=== PATIENT | female | born 1950 | race Caucasian/White ===

== ENCOUNTER → 2016-08-17 | Outpatient (CLI) | payer MEDICARE ==
[~2016-08-17] MED LIST: ANAS1TAB PO; ASPI-515 PO; ASPI325T4 PO; ATOR20TA9 PO; CARI350T PO; CELE200C PO; CHOL100014 PO; DIAZ10TA PO; GABA300C PO; LEVO75TA5 PO; LISI-167 PO; MORP60TA34 PO; OXYC-229 PO; OXYC10TA6 PO; OXYC1TAB8 PO; OXYC20TA42 PO; UBID100C11 PO; VENL37.511 PO; VENL75TA2 PO; VITA1TAB3 PO
[2016-08-17 12:02] LABS: HEMOGLOBIN 14.7 g/dL (11.7-16.4)
[2016-08-17 12:12] LABS: BLOOD UREA NITROGEN 8 mg/dL (7-18)
[2016-08-17 12:17] LABS: ASPARTATE AMINO TRANSFERASE 11 U/L (15-37)
== END | disposition home or self-care (01) ==
LOC: STAR 10:20
PROVIDERS: ATTEND Orthopaedic Surgery
DX: Z01.818 Encounter for other preprocedural examination (principal); M17.12 Unilateral primary osteoarthritis, left knee
CPT/HCPCS: 36415; 80053; 81003; 85025; 87081; 93005

== ENCOUNTER 2016-08-31 07:01 | Inpatient (IN) | payer MEDICARE ==
[~2016-08-31] VITALS: Ht 177.8 cm; Wt 121.6 kg
[2016-08-31] MEDS ORDERED: LACTATED RINGERS 1,000 ML IV SCH (07:39)
[2016-08-31] MEDS ORDERED: VANCOMYCIN PER PHARMACY MC STA (07:45)
[2016-08-31 07:48] VITALS: BP 151/105
[2016-08-31] MEDS ORDERED: LIDOCAINE 1%, 2ML SQ PRN (08:00)
[2016-08-31] MEDS ORDERED: VANCOMYCIN 2,000 MG in SODIUM CHLORIDE 0.9% 500 ML IV ONE (08:30)
[2016-08-31] MEDS ORDERED: morphine SULFATE/PF 1 MG/ML, 10ML ONE (09:00)
[2016-08-31] MEDS ORDERED: ROPIvacaine/PF 0.2%, 20 ML ONE (09:00)
[2016-08-31] MEDS ORDERED: KETOROLAC 60 MG/2 ML ONE (09:00)
[2016-08-31] MEDS ORDERED: EPINEPHRINE 1 MG/ML, 1ML ONE (09:00)
[2016-08-31] MEDS ORDERED: SODIUM CHLORIDE 0.9% 50 ML ONE (09:01)
[2016-08-31] MEDS ORDERED: MIDAZOLAM 1 MG/ML, 2ML ONE ×2 (09:21→11:36)
[2016-08-31] MEDS ORDERED: FENTANYL PF 250 MCG/5ML ONE (09:21)
[2016-08-31] MEDS ORDERED: BUPIVACAINE/PF 0.5% ONE (09:22)
[2016-08-31] MEDS ORDERED: METOCLOPRAMIDE 5 MG/ML, 2ML ONE (09:32)
[2016-08-31] MEDS ORDERED: NEOSTIGMINE 1 MG/ML, 10ML ONE (09:32)
[2016-08-31] MEDS ORDERED: CEFAZOLIN 1,000 MG ONE (09:32)
[2016-08-31] MEDS ORDERED: DEXAMETHASONE 4 MG/ML, 1ML ONE (09:32)
[2016-08-31] MEDS ORDERED: ONDANSETRON 2MG/ML, 2ML ONE (09:32)
[2016-08-31] MEDS ORDERED: PROPOFOL 10 MG/ML, 20ML ONE (09:32)
[2016-08-31] MEDS ORDERED: ROCURONIUM 10 MG/ML ONE (09:32)
[2016-08-31] MEDS ORDERED: GLYCOPYRROLATE 0.2MG/1ML ONE (09:32)
[2016-08-31] MEDS ORDERED: TRANEXAMIC ACID 100 MG/ML, 10ML ONE (09:37)
[2016-08-31] MEDS ORDERED: HYDROmorphone 1 MG/ML, 1ML ONE ×2 (09:42→11:09)
[2016-08-31] MEDS ORDERED: LABETALOL 5MG/ML, 20ML IV PRN (10:30)
[2016-08-31] MEDS ORDERED: hydrALAzine 20 MG/ML, 1ML IV PRN (10:30)
[2016-08-31] MEDS ORDERED: ACETAMINOPHEN 325 MG TABLET PO PRN ×2 (10:30→14:30)
[2016-08-31] MEDS ORDERED: ONDANSETRON 2MG/ML, 2ML IVPush PRN ×2 (10:30→14:30)
[2016-08-31] MEDS ORDERED: EPHEDRINE 50 MG/ML, 1ML IVPush PRN (10:30)
[2016-08-31] MEDS ORDERED: METOPROLOL 1 MG/ML, 5ML IV PRN (10:30)
[2016-08-31] MEDS ORDERED: OXYcodone 5 MG/5 ML ORAL.SOL UDC PO PRN (10:30)
[2016-08-31] MEDS ORDERED: ALBUTEROL SULFATE 2.5 MG/3 ML NPPB PRN (10:30)
[2016-08-31] MEDS ORDERED: NEOSPORIN OINT, 15GM ONE (10:34)
[2016-08-31] MEDS ORDERED: HYDROmorphone 2 MG/ML, 1ML ONE ×2 (11:13→12:00)
[2016-08-31] MEDS: HYDROmorphone 1 MG/ML, 1ML IV PRN ×8 (11:15→12:25)
[2016-08-31] MEDS ORDERED: OXYcodone 5 MG/5 ML ORAL.SOL UDC ONE (11:21)
[2016-08-31] MEDS ORDERED: FENTANYL PF 100 MCG/2ML ONE ×2 (11:36→12:33)
[2016-08-31] MEDS: FENTANYL PF 100 MCG/2ML IV PRN ×4 (11:41→13:08)
[2016-08-31] MEDS: MIDAZOLAM 1 MG/ML, 2ML IV PRN ×2 (11:42→11:57)
[2016-08-31] MEDS ORDERED: DIAZEPAM 5 MG/ML, 2ML ONE (12:15)
[2016-08-31] MEDS ORDERED: DIAZEPAM 5 MG/ML, 2ML IV ONE (12:30)
[2016-08-31] MEDS ORDERED: HYDROmorphone PCA 30 MG/30 ML ONE (13:20)
[2016-08-31] MEDS: HYDROmorphone PCA 30 MG/30 ML IV PRN (13:29)
[2016-08-31] MEDS ORDERED: BISACODYL 10 MG SUPP PR PRN (14:30)
[2016-08-31] MEDS ORDERED: VANCOMYCIN PMX 1GM/200ML 200 ML IVPB ONE ×2 (14:30→21:00)
[2016-08-31] MEDS ORDERED: ZOLPIDEM 5MG TABLET PO PRN (14:30)
[2016-08-31] MEDS ORDERED: HYDROcodone/APAP 5/325 TABLET PO PRN (14:30)
[2016-08-31] MEDS ORDERED: DIPHENHYDRAMINE 25 MG CAPSULE PO PRN (14:30)
[2016-08-31] MEDS ORDERED: ALUMINUM/MAG/SIMETHICONE 30 ML UDC PO PRN (14:30)
[2016-08-31] MEDS ORDERED: SENNA/DOCUSATE TABLET PO PRN (14:30)
[2016-08-31] MEDS ORDERED: MAGNESIUM HYDROXIDE 8%, 30ML UDC PO PRN (14:30)
[2016-08-31] MEDS ORDERED: morphine SULFATE 10 MG/ML, 1ML IV PRN (14:30)
[2016-08-31] MEDS: POTASSIUM CHLORIDE 10 MEQ in D5%-0.45% NACL 1,000 ML IV SCH (15:35)
[2016-08-31] MEDS: GABAPENTIN 300 MG CAPSULE PO SCH ×2 (15:36→20:38)
[2016-08-31] MEDS: LISINOPRIL 10 MG TABLET PO SCH (15:37)
[2016-08-31] MEDS: ANASTROZOLE 1 MG TABLET PO SCH (16:49)
[2016-08-31] MEDS: CEFAZOLIN PMX 1GM/50ML 50 ML IVPB SCH (18:41)
[2016-08-31 18:58] VITALS: BP 129/77
[2016-08-31] MEDS: DIAZEPAM 5 MG TABLET PO PRN (20:38)
[2016-08-31] MEDS: CARISOPRODOL 350 MG TABLET PO SCH (20:38)
[2016-08-31] MEDS: DOCUSATE 100 MG CAPSULE PO SCH (20:38)
[2016-08-31] MEDS ORDERED: NICOTINE 14MG/24 HR PATCH.TD24 TD ONE (21:00)
[2016-08-31] MEDS: OXYcodone IR 5MG TABLET PO PRN (23:16)
[2016-08-31 23:39] VITALS: BP 105/55
[2016-09-01] MEDS: CEFAZOLIN PMX 1GM/50ML 50 ML IVPB SCH (02:16)
[2016-09-01] MEDS: OXYcodone IR 5MG TABLET PO PRN ×5 (02:53→18:23)
[2016-09-01 04:42] VITALS: BP 125/82
[2016-09-01] MEDS: ENOXAPARIN 30 MG/0.3 ML SQ SCH ×2 (05:43→18:23)
[2016-09-01] MEDS: LEVOTHYROXINE 75 MCG TABLET PO SCH (05:43)
[2016-09-01 06:52] VITALS: BP 123/78
[2016-09-01] MEDS: HYDROmorphone PCA 30 MG/30 ML IV PRN (08:57)
[2016-09-01] MEDS: GABAPENTIN 300 MG CAPSULE PO SCH ×3 (09:13→23:00)
[2016-09-01] MEDS: MULTIVITAMINS/MINERALS TABLET PO SCH (09:13)
[2016-09-01] MEDS: LISINOPRIL 10 MG TABLET PO SCH (09:13)
[2016-09-01] MEDS: DOCUSATE 100 MG CAPSULE PO SCH (09:13)
[2016-09-01] MEDS: ANASTROZOLE 1 MG TABLET PO SCH (09:15)
[2016-09-01] MEDS: POTASSIUM CHLORIDE 10 MEQ in D5%-0.45% NACL 1,000 ML IV SCH (10:36)
[2016-09-01] MEDS: DIAZEPAM 5 MG TABLET PO PRN (12:30)
[2016-09-01] MEDS ORDERED: KETOROLAC 30 MG/1 ML IV SCH ×2 (14:30)
[2016-09-01 14:36] VITALS: BP 128/82
[2016-09-01 18:56] VITALS: BP 140/81
[2016-09-01] MEDS ORDERED: ALBUTEROL SULFATE 2.5 MG/3 ML ONE (20:23)
[2016-09-01] MEDS ORDERED: ALBUTEROL SULFATE 2.5 MG/3 ML NPPB PRN (20:30)
[2016-09-01] MEDS ORDERED: CALCIUM CARBONATE 500 MG TAB.CHEW PO PRN (22:30)
[2016-09-02] MEDS: CARISOPRODOL 350 MG TABLET PO SCH (00:12)
[2016-09-02] MEDS: DOCUSATE 100 MG CAPSULE PO SCH ×2 (00:12→09:09)
[2016-09-02] MEDS: OXYcodone IR 5MG TABLET PO PRN ×5 (00:13→16:59)
[2016-09-02 03:44] VITALS: BP 131/80
[2016-09-02] MEDS: POTASSIUM CHLORIDE 10 MEQ in D5%-0.45% NACL 1,000 ML IV SCH (06:42)
[2016-09-02] MEDS: LEVOTHYROXINE 75 MCG TABLET PO SCH (06:57)
[2016-09-02] MEDS: ENOXAPARIN 30 MG/0.3 ML SQ SCH (07:24)
[2016-09-02 08:01] VITALS: BP 124/68
[2016-09-02] MEDS: MULTIVITAMINS/MINERALS TABLET PO SCH (09:09)
[2016-09-02] MEDS: LISINOPRIL 10 MG TABLET PO SCH (09:10)
[2016-09-02] MEDS: GABAPENTIN 300 MG CAPSULE PO SCH ×2 (09:10→17:04)
[2016-09-02] MEDS: ANASTROZOLE 1 MG TABLET PO SCH (09:11)
[2016-09-02] MEDS ORDERED: KETOROLAC 10MG TABLET PO ONE (13:00)
[2016-09-02] MEDS ORDERED: OXYcodone/APAP 10/325MG TABLET PO ONE ×2 (13:00)
[2016-09-02 14:00] VITALS: BP 135/74
== END 2016-09-02 17:21 | disposition home or self-care (01) | DRG 470 ==
LOC: ORIP 07:01 → 4NOR 13:44
PROVIDERS: ADMIT Orthopaedic Surgery; ATTEND Orthopaedic Surgery
PROC: 0SRD0J9 Replacement of Left Knee Joint with Synthetic Substitute, Cemented, Open Approach (ICD-10-PCS; principal; 2016-08-31 10:00)
DX: M17.12 Unilateral primary osteoarthritis, left knee (principal); I10 Essential (primary) hypertension; M21.70 Unequal limb length (acquired), unspecified site; M79.7 Fibromyalgia; Z96.652 Presence of left artificial knee joint; Z90.710 Acquired absence of both cervix and uterus; Z90.89 Acquired absence of other organs; Z91.041 Radiographic dye allergy status
CPT/HCPCS: 36415; 82565; 94640; C1713; J0171; J0690; J1100; J1170; J1650; J1885; J2250; J2274; J2405; J2704; J2710; J2795; J3010; J3360; J3370; J3480; J3490; J7613; C1776; J2765; J7040; J7120; Q0163

== ENCOUNTER → 2017-02-10 | Outpatient (CLI) | payer MEDICARE ==
[~2017-02-10] MED LIST changes: +ASPI325T17 PO; -ASPI325T4 PO; -OXYC-229 PO; +OXYC-307 PO; -UBID100C11 PO; +UBID100C41 PO
== END | disposition home or self-care (01) ==
LOC: CFH 13:19
PROVIDERS: ATTEND Surgery
DX: R92.0 Mammographic microcalcification found on diagnostic imaging of breast (principal); Z85.3 Personal history of malignant neoplasm of breast; Z90.12 Acquired absence of left breast and nipple; Z92.3 Personal history of irradiation
CPT/HCPCS: G0204

== ENCOUNTER → 2017-07-28 | Outpatient (CLI) | payer MEDICARE, OTHER ==
[~2017-07-28] MED LIST changes: +LEVO100T5 PO; +PRAM1TAB PO
[2017-07-28 12:05] LABS: ALBUMIN 3.9 g/dL (3.4-5.0); ANION GAP 7 mmol/L (5-15); CALCIUM 9.3 mg/dL (8.5-10.1); CHLORIDE 101 mmol/L (98-107)
[2017-07-28 12:09] LABS: ALANINE AMINOTRANSFERASE 20 U/L (12-78); ALKALINE PHOSPHATASE 136 U/L (45-117); BILIRUBIN,TOTAL 0.5 mg/dL (0.2-1.0); CREATININE 0.81 mg/dL (0.55-1.02); TOTAL PROTEIN 7.2 g/dL (6.4-8.2)
== END | disposition home or self-care (01) ==
LOC: STAR 10:39
PROVIDERS: ATTEND Orthopaedic Surgery
DX: Z01.818 Encounter for other preprocedural examination (principal); M17.12 Unilateral primary osteoarthritis, left knee; Z96.652 Presence of left artificial knee joint
CPT/HCPCS: 36415; 80053; 93005

== ENCOUNTER 2017-08-09 11:43 | Day surgery (SDC) | payer MEDICARE, OTHER ==
[~2017-08-09] VITALS: Ht 177.8 cm; Wt 108.6 kg
[2017-08-09] MEDS ORDERED: VANCOMYCIN PMX 1GM/200ML 200 ML IV ONE (11:54)
[2017-08-09] MEDS ORDERED: LIDOCAINE-MPF 1%, 2ML ONE (12:24)
[2017-08-09 12:44] VITALS: BP 144/81
[2017-08-09] MEDS ORDERED: LACTATED RINGERS 1,000 ML IV SCH (12:51)
[2017-08-09] MEDS ORDERED: LIDOCAINE-MPF 1%, 2ML INFIL ONE (13:00)
[2017-08-09] MEDS ORDERED: SODIUM CHLORIDE 0.9% 0 ML ONE (13:28)
[2017-08-09] MEDS ORDERED: TRANEXAMIC ACID 100 MG/ML, 10ML ONE (13:28)
[2017-08-09] MEDS ORDERED: EPINEPHRINE 1 MG/ML, 1ML ONE (13:28)
[2017-08-09] MEDS ORDERED: KETOROLAC 60 MG/2 ML ONE (13:28)
[2017-08-09] MEDS ORDERED: ONDANSETRON 2MG/ML, 2ML ONE (13:44)
[2017-08-09] MEDS ORDERED: SUCCINYLCHOLINE 20 MG/ML, 10ML ONE (13:44)
[2017-08-09] MEDS ORDERED: CEFAZOLIN 1,000 MG ONE (13:44)
[2017-08-09] MEDS ORDERED: PROPOFOL 10 MG/ML, 20ML ONE (13:44)
[2017-08-09] MEDS ORDERED: DEXAMETHASONE 4 MG/ML, 1ML ONE (13:44)
[2017-08-09] MEDS ORDERED: MIDAZOLAM 1 MG/ML, 2ML ONE (13:48)
[2017-08-09] MEDS ORDERED: FENTANYL PF 250 MCG/5ML ONE (13:54)
[2017-08-09] MEDS ORDERED: ACETAMINOPHEN 650 MG/20.3 ML UDC ONE (14:49)
[2017-08-09] MEDS ORDERED: OXYcodone 5 MG/5 ML ORAL.SOL UDC ONE (14:49)
[2017-08-09] MEDS ORDERED: FENTANYL PF 100 MCG/2ML ONE ×2 (14:49→15:13)
[2017-08-09] MEDS: FENTANYL PF 100 MCG/2ML IV PRN ×4 (14:53→15:22)
[2017-08-09] MEDS ORDERED: hydrALAzine 20 MG/ML, 1ML IV PRN (15:00)
[2017-08-09] MEDS ORDERED: ONDANSETRON 2MG/ML, 2ML IVPush PRN (15:00)
[2017-08-09] MEDS ORDERED: OXYcodone 5 MG/5 ML ORAL.SOL UDC PO PRN (15:00)
[2017-08-09] MEDS ORDERED: LABETALOL 5MG/ML, 20ML IV PRN (15:00)
[2017-08-09] MEDS ORDERED: ACETAMINOPHEN 325 MG TABLET PO PRN (15:00)
[2017-08-09] MEDS ORDERED: HYDROmorphone 1 MG/ML, 1ML IV PRN (15:00)
[2017-08-09] MEDS ORDERED: METOCLOPRAMIDE 5 MG/ML, 2ML IV PRN (15:00)
[2017-08-09] MEDS ORDERED: morphine SULFATE 10 MG/ML, 1ML ONE (16:15)
[2017-08-09] MEDS ORDERED: OXYcodone/APAP 5/325MG TABLET PO PRN (16:30)
[2017-08-09] MEDS ORDERED: morphine SULFATE 10 MG/ML, 1ML IVPush PRN (16:30)
== END 2017-08-09 17:35 ==
LOC: OUT 11:43
PROVIDERS: ATTEND Orthopaedic Surgery
DX: M23.52 Chronic instability of knee, left knee (principal); I10 Essential (primary) hypertension; E03.9 Hypothyroidism, unspecified; Z88.0 Allergy status to penicillin; Z90.710 Acquired absence of both cervix and uterus; Z79.82 Long term (current) use of aspirin; Z96.659 Presence of unspecified artificial knee joint
CPT/HCPCS: 27435; J0330; J0690; J1100; J2250; J2270; J2405; J2704; J3010; J3370; J3490; J7120; J0171; J1885